=== PATIENT | male | born 1980 | race American Indian/Alaskan Native ===

== ENCOUNTER 2017-06-03 07:33 | Emergency (ER) | payer OTHER ==
[~2017-06-03] VITALS: Ht 175.3 cm; Wt 75.8 kg
[~2017-06-03 07:33] MED LIST: CARI350T PO; CYCL-394 PO; NO HOME MEDS
[2017-06-03] MEDS ORDERED: SULF1TAB49 PO (08:17)
[2017-06-03] MEDS ORDERED: sulfamethoxazole/trimethoprim DS (800/160mg) tablet PO ONE (08:30)
[2017-06-03 08:36] VITALS: BP 134/71
== END 2017-06-03 08:38 | disposition home or self-care (01) ==
LOC: ER 07:33
DX: L03.211 Cellulitis of face (principal); L03.114 Cellulitis of left upper limb; L03.113 Cellulitis of right upper limb; G89.29 Other chronic pain; F17.200 Nicotine dependence, unspecified, uncomplicated; F15.10 Other stimulant abuse, uncomplicated; F11.10 Opioid abuse, uncomplicated; Z88.8 Allergy status to other drugs, medicaments and biological substances; Z86.19 Personal history of other infectious and parasitic diseases; Z59.0 Homelessness; Z56.0 Unemployment, unspecified; Z79.899 Other long term (current) drug therapy
CPT/HCPCS: 99283

== ENCOUNTER 2017-06-16 20:07 | Emergency (ER) | payer OTHER ==
[~2017-06-16] VITALS: Ht 205.7 cm; Wt 77.3 kg
[2017-06-16] MEDS ORDERED: CEPH-572 PO (22:08)
[2017-06-16] MEDS ORDERED: SULF1TAB49 PO (22:08)
[2017-06-16] MEDS ORDERED: cephalexin 250mg capsule PO ONE (22:10)
[2017-06-16] MEDS ORDERED: ibuprofen tablet 400 MG TABLET PO ONE (22:10)
[2017-06-16] MEDS ORDERED: sulfamethoxazole/trimethoprim DS (800/160mg) tablet PO ONE (22:10)
[2017-06-16 22:23] VITALS: BP 136/88
== END 2017-06-16 22:24 | disposition home or self-care (01) ==
LOC: ER 20:08
DX: L03.113 Cellulitis of right upper limb (principal); G89.29 Other chronic pain; F15.10 Other stimulant abuse, uncomplicated; Z86.19 Personal history of other infectious and parasitic diseases; Z59.0 Homelessness; Z88.8 Allergy status to other drugs, medicaments and biological substances; Z79.899 Other long term (current) drug therapy
CPT/HCPCS: 99284

== ENCOUNTER 2017-10-20 13:35 | Emergency (ER) | payer OTHER ==
[~2017-10-20] VITALS: Ht 175.3 cm; Wt 81.8 kg
[2017-10-20 14:11] VITALS: BP 116/64
[2017-10-20] MEDS ORDERED: SULF1TAB49 PO (14:59)
[2017-10-20] MEDS ORDERED: CEPH500C5 PO (14:59)
== END 2017-10-20 15:44 | disposition home or self-care (01) ==
LOC: ER 13:38
DX: L02.414 Cutaneous abscess of left upper limb (principal); L02.413 Cutaneous abscess of right upper limb; L02.416 Cutaneous abscess of left lower limb; L02.415 Cutaneous abscess of right lower limb; G89.29 Other chronic pain; F15.10 Other stimulant abuse, uncomplicated; F11.10 Opioid abuse, uncomplicated; Z59.0 Homelessness; Z56.0 Unemployment, unspecified; Z79.899 Other long term (current) drug therapy
CPT/HCPCS: 99283

== ENCOUNTER 2017-11-06 01:05 | Emergency (ER) | payer MEDICAID, OTHER ==
[~2017-11-06] VITALS: Ht 175.3 cm; Wt 79.1 kg
[~2017-11-06 01:05] MED LIST changes: +CEPH500C5 PO
[2017-11-06 01:12] VITALS: BP 128/108
[2017-11-06] MEDS ORDERED: CEPH500C5 PO (03:17)
[2017-11-06] MEDS ORDERED: TRAM50TA2 PO (03:17)
[2017-11-06] MEDS ORDERED: SULF1TAB49 PO (03:17)
== END 2017-11-06 04:30 | disposition home or self-care (01) ==
LOC: ER 01:05
DX: L02.416 Cutaneous abscess of left lower limb (principal); G89.29 Other chronic pain; F15.90 Other stimulant use, unspecified, uncomplicated; F11.90 Opioid use, unspecified, uncomplicated; Z86.19 Personal history of other infectious and parasitic diseases; Z86.14 Personal history of Methicillin resistant Staphylococcus aureus infection; Z59.0 Homelessness; Z56.0 Unemployment, unspecified; Z88.8 Allergy status to other drugs, medicaments and biological substances; Z79.2 Long term (current) use of antibiotics; Z79.899 Other long term (current) drug therapy
CPT/HCPCS: 99283

== ENCOUNTER 2018-01-28 05:25 | Emergency (ER) | payer MEDICAID ==
[~2018-01-28] VITALS: Ht 175.3 cm; Wt 76.3 kg
[2018-01-28 05:32] VITALS: BP 114/81
[2018-01-28] MEDS ORDERED: CEPH-572 PO (06:17)
[2018-01-28] MEDS ORDERED: POLOS LEFTEYE (06:17)
== END 2018-01-28 06:40 | disposition home or self-care (01) ==
LOC: ER 05:25
DX: H10.9 Unspecified conjunctivitis (principal); L03.116 Cellulitis of left lower limb; F15.10 Other stimulant abuse, uncomplicated; G89.29 Other chronic pain; M54.9 Dorsalgia, unspecified; Z88.8 Allergy status to other drugs, medicaments and biological substances
CPT/HCPCS: 99283

== ENCOUNTER 2018-02-20 03:49 | Emergency (ER) | payer MEDICAID ==
[~2018-02-20] VITALS: Ht 172.7 cm; Wt 81.8 kg
[~2018-02-20 03:49] MED LIST changes: +POLOS LEFTEYE
[2018-02-20] MEDS ORDERED: DIPH25CA83 PO (04:18)
[2018-02-20] MEDS ORDERED: SULF1TAB49 PO (04:18)
[2018-02-20] MEDS ORDERED: CEPH500C5 PO (04:18)
[2018-02-20 04:38] VITALS: BP 106/67
== END 2018-02-20 04:40 | disposition home or self-care (01) ==
LOC: ER 03:49
DX: L03.116 Cellulitis of left lower limb (principal); L03.115 Cellulitis of right lower limb; G89.29 Other chronic pain; Z86.14 Personal history of Methicillin resistant Staphylococcus aureus infection; F15.90 Other stimulant use, unspecified, uncomplicated; F11.90 Opioid use, unspecified, uncomplicated; F17.200 Nicotine dependence, unspecified, uncomplicated; Z88.6 Allergy status to analgesic agent; Z79.2 Long term (current) use of antibiotics; Z79.899 Other long term (current) drug therapy; Z59.0 Homelessness; Z56.0 Unemployment, unspecified
CPT/HCPCS: 99283

== ENCOUNTER 2018-04-29 16:24 | Emergency (ER) | payer MEDICAID ==
[~2018-04-29] VITALS: Ht 165.1 cm; Wt 70.0 kg
[~2018-04-29 16:24] MED LIST changes: +DIPH25CA83 PO; -POLOS LEFTEYE
[2018-04-29 16:38] VITALS: BP 145/94
[2018-04-29] MEDS ORDERED: CEPH250T PO (16:46)
[2018-04-29] MEDS ORDERED: SULF1TAB49 PO (16:46)
== END 2018-04-29 16:55 | disposition home or self-care (01) ==
LOC: ER 16:24
DX: L02.416 Cutaneous abscess of left lower limb (principal); F42.4 Excoriation (skin-picking) disorder; R20.0 Anesthesia of skin; G89.29 Other chronic pain; M54.9 Dorsalgia, unspecified; F15.90 Other stimulant use, unspecified, uncomplicated; F11.90 Opioid use, unspecified, uncomplicated; Z86.14 Personal history of Methicillin resistant Staphylococcus aureus infection; Z88.6 Allergy status to analgesic agent; Z56.0 Unemployment, unspecified
CPT/HCPCS: 99283

== ENCOUNTER 2018-07-11 20:47 | Emergency (ER) | payer MEDICAID ==
[~2018-07-11] VITALS: Ht 175.3 cm; Wt 77.7 kg
[~2018-07-11 20:47] MED LIST changes: +CEPH250T PO
--- NOTE | 2018-07-11 21:20 | NUR ---
PATIENT IN LOBBY IN HIS OWN WC WITH HIS RIGHT LEG EXTENDED STRIGHT OUT FROM . BROUGHT BACK TO ROOM IN [facility]. PATIENT HAS A WOUND VAC TO RIGHT LOWER LEG. THE WOUND VAC DRESSING IS CDI. THE TUBING FROM THE WOUND TO THE I WOUND VAC DOES NOT APPEAR TO BE CLOGGED, BUT THE COLLECTION CANISTER IS FULL OF SEROSANGUINOUS DRAINAGE. THE MACHINE IS CHARGED. I EXPLAINED TO THE PATIENT THAT WE DO NOT HAVE CANISTERS TO REPLACE IT. I EXPLAINED TO THE PATIENT THAT WE WOULD NEED TO REMOVE THE WOUND VAC DRESSING AND DO A WET TO DRY DRESSING. THE PATIENT STATED "IT WILL NEVER HEAL." I EXPLAINED TO THE PATIENT THAT WOUNDS HEAL WITH WET TO DRY DRESSINGS. THE PATIENT REFUSED TO HAVE THE WOUND VAC DRESSING REMOVED AND A WET TO DRY DRESSING PLACED. THE PATIENT MISSED HIS WOUND CARE APPOINTMENT AT [facility] YESTERDAY. AFTER THE PATIENT WAS INFORMED THAT THE PLAN OF CARE PER THE PA IS TO DO A WET TO DRY DRESSING AND HAVE HIM FOLLOW UP WITH WOUND CARE ON FRIDAY, THE PATIENT STATED THAT HE IS GOING TO CALL AN AMBULANCE AND GO TO [facility]. I SUGGESTED THAT INSTEAD OF TAKE AN AMBULANCE OUT OF SERVICE FOR SOMEONE WHO MAY HAVE A LIFE THREATENING CONDITION, THE PATIENT COULD TAKE A CAB. THE PATIENT STATED THAT HE COULD NOT GET INTO A CAB. THE PATIENT ARRRIVED VIA A FRIENDS CAR. ALSO, THE PATIENT QUICKLY GOT OUT OF HIS WHEELCHAIR AND ONTO THE GURNEY BY HIMSELF WHEN PLACED IN ROOM 17. THE PATIENT PERCEIVED THAT HE WAS BEING TREATED DIFFERENTLY. I EXPLAINED WELL AUNG RYAN THAT ANYONE ARRIVING WITH A MALFUNCTIONING WOUND VAC WOULD HAVE IT REMOVED AND A WET TO DRY DRESSING PLACED.
--- NOTE | 2018-07-11 21:25 | NUR ---
WHEN THE PATIENT WAS IN THE ROOM HE REMOVED THE WOUND VAC CANISTER AND SOME TUBING AND PUT IT ON THE BED AFTER CLAMPING THE TUBING. THE ODOR WAS FOUL. A CAB WAS CALLED FOR THE PATIENT AFTER HE REFUSED THE WET TO DRY DRESSING.
[2018-07-12 00:22] VITALS: BP 109/68
== END 2018-07-11 21:56 | disposition home or self-care (01) ==
LOC: ER 20:48
DX: L53.8 Other specified erythematous conditions (principal); F15.90 Other stimulant use, unspecified, uncomplicated; F11.90 Opioid use, unspecified, uncomplicated; G89.29 Other chronic pain; Z59.0 Homelessness; Z56.0 Unemployment, unspecified; Z86.14 Personal history of Methicillin resistant Staphylococcus aureus infection; Z88.6 Allergy status to analgesic agent; Z79.899 Other long term (current) drug therapy
CPT/HCPCS: 99284

== ENCOUNTER 2018-11-04 19:02 | Emergency (ER) | payer MEDICAID ==
[~2018-11-04] VITALS: Ht 175.3 cm; Wt 81.8 kg
[2018-11-04 19:59] LABS: BASOPHILS % (AUTO) 0.3 % (0-1); EOSINOPHILS % (AUTO) 0.1 % (0-6); HEMATOCRIT 35.2 % (42.0-52.0); HEMOGLOBIN 11.4 g/dl (14.0-17.9); LYMPHOCYTES # (AUTO) 1.7 X10'3 (1.1-4.8); LYMPHOCYTES % (AUTO) 12.2 % (21-51); MEAN CORPUSCULAR HEMOGLOBIN 25.9 PG (27.0-31.0); MEAN CORPUSCULAR HGB CONC 32.4 g/dL (33.0-36.5); MEAN CORPUSCULAR VOLUME 79.9 FL (78-98); MEAN PLATELET VOLUME 7.7 FL (7.4-10.4); MONOCYTES # (AUTO) 1.2 X10'3 (0-0.9); MONOCYTES % (AUTO) 8.5 % (2-12); NEUTROPHILS % (AUTO) 78.9 % (42-75); PLATELET COUNT 202 X10'3 (140-440); RED BLOOD COUNT 4.41 X10'6 (4.70-6.10); RED CELL DISTRIBUTION WIDTH 22.7 % (11.5-14.5)
[2018-11-04 20:22] LABS: ALANINE AMINOTRANSFERASE 16 U/L (12-78); ALBUMIN/GLOBULIN RATIO 0.8 (1.1-1.5); ALKALINE PHOSPHATASE 101 IU/L (46-116); ANION GAP 9 (8-16); ASPARTATE AMINO TRANSFERASE 24 U/L (10-37); BLOOD UREA NITROGEN 11 MG/DL (7-18); BUN/CREATININE RATIO 11.5 (5.4-32.0); CALCIUM 9.7 MG/DL (8.5-10.1); CHLORIDE 98 MMOL/L (99-107); CREATININE 0.96 MG/DL (0.60-1.10); GLUCOSE 138 MG/DL (70-104); POTASSIUM 3.4 MMOL/L (3.5-5.1); SODIUM 134 MMOL/L (135-145); TOTAL CARBON DIOXIDE 26.6 MMOL/L (24-32); eGFR 88 ML/MIN
[2018-11-04 20:26] LABS: PARTIAL THROMBOPLASTIN TIME 28 SECONDS (22-32)
[2018-11-04 20:48] LABS: ANISOCYTOSIS 2+; MICROCYTOSIS 1+; PLATELET ESTIMATE NORMAL
[2018-11-04 20:49] LABS: POIKILOCYTOSIS FEW
[2018-11-04 20:50] LABS: HYPOCHROMASIA 1+
[2018-11-04] MEDS ORDERED: normal saline 1000ML IV soln IV ONE (21:10)
[2018-11-04] MEDS: TETanus/Pertussis (Acell)/Diphther VAC/PF (Tdap-Adult) 0.5ml syringe IM ONE ×2 (21:15→21:31)
[2018-11-04] MEDS ORDERED: vancomycin/NS 1 GM ADD-VANTAGE 250 ML IV ONE (21:15)
[2018-11-04] MEDS: piperacillin/tazo 3.375gm/50ml 50 ML IV ONE ×2 (21:31→21:41)
[2018-11-04] MEDS ORDERED: NO HOME MEDS (22:54)
[2018-11-04 23:34] LABS: CLARITY,URINE SLIGHTLY CLOUDY (Clear); COLOR,URINE YELLOW (Yellow); GLUCOSE, URINE NEGATIVE (Neg); KETONES,URINE NEGATIVE (Neg); LEUKOCYTE ESTERASE ,URINE NEGATIVE (Neg); NITRITES, URINE NEGATIVE (Neg); OCCULT BLOOD,URINE NEGATIVE (Neg); PH,URINE 5.5 (4.8-8.0); PROTEIN,URINE TRACE mg/dl (Neg); UROBILINOGEN,URINE 0.2 E.U/dL (0.2-1.0)
[2018-11-04 23:40] LABS: BACTERIA,URINE FEW /HPF (Neg); RBC,URINE NONE SEEN /HPF (0-2); UA COLLECTION TYPE CLN CATCH MIDSTREAM; WBC,URINE 0-4 /HPF (0-4)
[2018-11-04 23:41] LABS: AMORPHOUS URATES 1+; MUCUS STRANDS MANY /LPF (Neg); SQUAMOUS EPITHELIAL CELL,UR FEW /LPF (FEW)
[2018-11-05] MEDS ORDERED: ondansetron/PF 4mg/2ml inj IV ONE (01:20)
[2018-11-05] MEDS ORDERED: morphine 4 MG/ML inj SYRINge IV ONE (01:20)
[2018-11-05 01:26] VITALS: BP 136/58
[2018-11-05] MEDS ORDERED: normal saline 1000ml 1,000 ML IV ONE (01:37)
[2018-11-05] MEDS ORDERED: nicotine 21mg patch - 24 hr TD ONE (01:40)
[2018-11-05] MEDS ORDERED: SULF1TAB49 PO (01:46)
[2018-11-05] MEDS ORDERED: CEPH-572 PO (01:46)
== END 2018-11-05 01:51 | disposition left against medical advice (07) ==
LOC: ER 19:03
DX: L03.116 Cellulitis of left lower limb (principal); G89.29 Other chronic pain; F15.90 Other stimulant use, unspecified, uncomplicated; F11.90 Opioid use, unspecified, uncomplicated; Z59.0 Homelessness; Z56.0 Unemployment, unspecified; Z86.14 Personal history of Methicillin resistant Staphylococcus aureus infection; Z98.890 Other specified postprocedural states; Z88.6 Allergy status to analgesic agent
CPT/HCPCS: 36415; 71045; 73590; 80053; 81001; 83605; 84145; 85025; 85610; 85730; 87040; 90715; 93005; 96365; 96368; 96375; 99285; J2270; J2405; J3370; J7030